=== PATIENT | male | born 1995 | race Caucasian/White ===

== ENCOUNTER 2017-08-31 11:51 | Emergency (ER) | payer SELFPAY ==
[~2017-08-31] VITALS: Ht 188 cm; Wt 81.8 kg
[~2017-08-31 11:51] MED LIST: AUVI-Q0.3 IM; PREDNISONE20 MG PO
[2017-08-31 11:56] VITALS: BP 131/73
[2017-08-31] MEDS ORDERED: NORCO 325 MG-51 TAB PO (13:03)
[2017-08-31] MEDS ORDERED: PEN-VEE K500 MG PO (13:03)
[2017-08-31 13:24] VITALS: PULSE 67; TEMP 97.7
== END 2017-08-31 13:27 | disposition home or self-care (01) ==
LOC: COL.ER 11:51
DX: K02.9 Dental caries, unspecified (principal); F17.210 Nicotine dependence, cigarettes, uncomplicated